=== PATIENT | female | born 1950 | race Caucasian/White ===

== ENCOUNTER 2025-04-23 09:07 | Emergency (ER) | payer MEDICARE, MEDICAID, SELFPAY ==
[2025-04-23] VITALS (41 sets, daily range): BP systolic 102–145; BP diastolic 75–101; PULSE 63–84; RESP 16; TEMP 36.6; O2SAT 54–98; BMI 41.0
--- NOTE | 2025-04-23 09:09 | ECG_ITS ---
The [facility] Test Date: 2025-04-23 Pat Name: Veronica Bansal Department: Room: - Gender: Female [employer] Operator: : 1950 Requested By: Order Number: [id number] Reading MD: BORIS JOHN M.D. Measurements Intervals [place] Rate: 81 P: 42 OK: 150 QRS: -41 QRSD: 90 T: -79 QT: 404 QTc: 442 Interpretive Statements 1100 Sinus rhythm [address] depression 4364 Twave abnormality, possible anterolateral ischemia 4664 Twave abnormality, possible inferior ischemia 7200 Abnormal left axis deviation 8003 Consistent with pulmonary disease 9150 abnormal ECG Compared to ECG 06/01/2021 03:59:41 ST (T wave) deviation now present Possible ischemia now present Left-axis deviation now present Electronically Signed On 04-23-2025 19:35:40 EST by BORIS JOHN M.D.
--- NOTE | 2025-04-23 09:09 | XR_ITS ---
The [address] [address] Patient Name: CHEMO ATKINSON MRN: [id number] date: 1950 Sex: F Assigned Patient Location: ER Current Patient Location: ED.MAIN Accession/Order Number: [id number] Exam Date: 04/23/2025 09:10 Report Date: 04/23/2025 09:31 At the request of: GABRIELLE MAXWELL MD Procedure: XR chest 1V PORTABLE AP ERECT CHEST 0910 hours CLINICAL HISTORY: Shortness of breath COMPARISON: 06/01/2021 Evaluation is slightly limited by large body habitus. There is elevation of the left hemidiaphragm with underlying air-filled viscus. There is adjacent basilar atelectasis and/or scarring. There is hazy density on the right, greatest at the base. The costophrenic angle is however seen. There is no pneumothorax. The heart may be slightly prominent. The bony structures are osteopenic. XR/XR chest 1V IMPRESSION: POSSIBLE MILD CARDIOMEGALY. BILATERAL PARENCHYMAL CHANGES, DESCRIBED. Impression dictated by: Maggie Cobian M.D. 04/23/2025 9:31 AM Dictation Location: [place] [address] Electronically authenticated by: [id number] Y Date: 04/23/2025 09:31
--- NOTE | 2025-04-23 09:24 | ED.GENADUL1 ---
HPI HPI - General Adult General Chief complaint: Shortness of Breath/Dyspnea Stated complaint: SOB Time Seen by Provider: 04/23/25 09:09 Source: medical record and other Source information: ems Mode of arrival: ambulance History of Present Illness HPI narrative: 74-year-old female presented for shortness of breath. She comes in from [facility] by paramedics. half-way reported an O2 sat in the mid 40s on room air. She was placed on nasal cannula and then CPAP at the paramedics. They did not have a low sat reading for them and reported sats in the upper 80s with these modalities. She is unable to provide any good history, she has a history of schizophrenia. No further history is obtainable. Related Data Home Medications ?Medication ?Instructions ?Recorded ?Confirmed alendronate 70 mg tablet 70 mg PO .TUES 04/23/25 04/23/25 amlodipine 2.5 mg tablet 2.5 mg PO .QD 04/23/25 04/23/25 atorvastatin 20 mg tablet 20 mg PO .QHS 04/23/25 04/23/25 docusate sodium 100 mg capsule 100 mg PO TID PRN constipation 04/23/25 04/23/25 (Colace) ergocalciferol (vitamin D2) 1,250 50,000 unit PO .THUR 04/23/25 04/23/25 mcg (50,000 unit) capsule ferrous sulfate 325 mg (65 mg 325 mg PO DAILY 04/23/25 04/23/25 iron) tablet furosemide 20 mg tablet 20 mg PO .QD 04/23/25 04/23/25 levothyroxine 50 mcg tablet 50 mcg PO .ACB 04/23/25 04/23/25 lorazepam 0.5 mg tablet 0.5 mg PO .QHS 04/23/25 04/23/25 lorazepam 1 mg tablet 1 mg PO .QD 04/23/25 04/23/25 memantine 10 mg tablet 10 mg PO BID 04/23/25 04/23/25 olanzapine 10 mg tablet (Zyprexa) 10 mg PO .QHS 04/23/25 04/23/25 omeprazole 20 mg capsule,delayed 20 mg PO DAILY 04/23/25 04/23/25 release oxcarbazepine 150 mg tablet 150 mg PO BID 04/23/25 04/23/25 rivastigmine tartrate 1.5 mg 1.5 mg PO BID 04/23/25 04/23/25 capsule sertraline 25 mg tablet 25 mg PO .QD 04/23/25 04/23/25 Allergies Allergy/AdvReac Type Severity Reaction Status Date / Time haloperidol (From Haldol) Allergy Unknown Unknown Verified 04/23/25 09:18 Review of Systems ROS Narrative Unobtainable, psychiatric disorder PFSH [facility] Medical History (Updated 04/23/25 @ 13:51 by Aaron Miller MD) Other specified behavioral problem Vascular dementia Anxiety ?F41.9 - Anxiety disorder, unspecified (ICD-10) Schizo affective schizophrenia ?F25.9 - Schizoaffective disorder, unspecified (ICD-10) Vitamin D deficiency ?E55.9 - Vitamin D deficiency, unspecified (ICD-10) Prediabetes ?R73.03 - Prediabetes (ICD-10) Morbid obesity ?E66.01 - Morbid (severe) obesity due to excess calories (ICD-10) Anemia ?D64.9 - Anemia, unspecified (ICD-10) Hyponatremia ?E87.1 - Hypo-osmolality and hyponatremia (ICD-10) Osteoporosis ?M81.0 - Age-related osteoporosis without current pathological fracture (ICD-10) IBS (irritable bowel syndrome) ?K58.9 - Irritable bowel syndrome, unspecified (ICD-10) GERD (gastroesophageal reflux disease) ?K21.9 - Gastro-esophageal reflux disease without esophagitis (ICD-10) Insomnia ?G47.00 - Insomnia, unspecified (ICD-10) Hyperlipidemia ?E78.5 - Hyperlipidemia, unspecified (ICD-10) Hypothyroidism ?E03.9 - Hypothyroidism, unspecified (ICD-10) Bipolar II disorder ?F31.81 - Bipolar II disorder (ICD-10) 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 CPAP is in place upon arrival Skin:Warm, dry, no pallor noted.There is no rash noted. Head:Normocephalic, atraumatic Eye: Normal conjunctiva, no drainage Ears, Nose, Mouth, and Throat: oral mucosa is moist. Nares patent. Cardiovascular:Regular Rate and Rhythm Respiratory:Patient is in no distress, she does not take in deep breaths. Breath sounds seem to be equal bilaterally. Back:non-tender GI: Soft and nontender Musculoskeletal: The patient has no evidence of calf tenderness, symmetrical pulses noted bilaterally Neurological: Awake and alert. Speaking in full sentences. Psychiatric: Moderately cooperative. Constitutional Vital Signs, click to edit/add: Last Vital Signs Temp 97.9 F 04/23/25 09:09 Pulse 76 04/23/25 09:25 Resp 20 04/23/25 09:09 BP 103/76 04/23/25 09:09 Pulse Ox 94 L 04/23/25 12:29 O2 Del Method Nasal Cannula 04/23/25 12:29 O2 Flow Rate 6 04/23/25 12:29 FiO2 50 04/23/25 09:25 Course Vital Signs Vital signs: Vital Signs Temperature 97.9 F 04/23/25 09:09 Pulse Rate 78 04/23/25 09:09 Respiratory Rate 20 04/23/25 09:09 Blood Pressure 103/76 04/23/25 09:09 Pulse Oximetry 91 L 04/23/25 09:09 Oxygen Delivery Method BIPAP 04/23/25 09:09 Temperature 97.9 F 04/23/25 09:09 Pulse Rate 76 04/23/25 09:25 Respiratory Rate 20 04/23/25 09:09 Blood Pressure 103/76 04/23/25 09:09 Pulse Oximetry 94 L 04/23/25 12:29 Oxygen Delivery Method Nasal Cannula 04/23/25 12:29 Oxygen Delivery Flow Rate 6 04/23/25 12:29 Fraction of Inspired Oxygen 50 04/23/25 09:25 Medical Decision Making MDM Narrative Medical decision making narrative: The patient presented with dyspnea. CT scan shows no evidence of pulmonary embolism and suggests a pneumonia but is also showing possible lung mass. Initial troponin was minimally elevated at 56 and the repeat was 75 and the third troponin was 70. She was given aspirin and started on heparin. She has an abnormal EKG with flipped T waves laterally and ST segment depression. The second EKG, performed at 1:44 PM shows similar findings, perhaps less pronounced. She does not seem to have had chest pain at any point. She was initially maintained on BiPAP but we were able to switch her over to 6 L nasal cannula and she is maintaining O2 sat of approximately 93%. No fever and blood pressure remains appropriate. Blood cultures were obtained and she was given IV Rocephin and Zithromax. Case discussed with Dr. John who request transfer to [facility] and this is being accomplished. I have spoken to Dr. Martínez who accepts the patient. Differential Diagnosis Differential Diagnosis: Pneumonia, heart failure, pleural effusion, NE, COVID, influenza Lab Data Lab results reviewed: Yes I reviewed the patient's lab results Labs: Lab Results 04/23/25 04/23/25 04/23/25 Range/Units 09:10 09:44 10:24 WBC 9.1 (4.0-11.0) 10^3/uL RBC 4.31 (4.20-5.40) 10^6/uL Hgb 13.9 (12.0-16.0) g/dL Hct 45.0 (36.0-48.0) % MCV 104.4 H (81.0-99.0) fL MCH 32.3 (26.7-34.0) pg MCHC 30.9 (29.9-35.2) g/dL RDW 15.7 H (11.0-15.0) % Plt Count 164 (150-450) 10^3/uL MPV 10.5 (9.5-13.5) fL Seg Neuts % (Manual) 82.0 H (43.0-75.0) Band Neutrophils % 1.0 (0-5) % Lymphocytes % (Manual) 2.0 L (20.5-60.0) % Monocytes % (Manual) 11.0 (1.7-12.0) % Eosinophils % (Manual) 3.0 (0.9-7.0) % Basophils % (Manual) 2.0 (0.2-2.0) % Neutrophils # (Manual) 7.46 H (1.4-6.5) 10^3/uL Band Neutrophils # 0.1 (0.0-0.3) 10^3/uL Lymphocytes # (Manual) 0.18 L (1.20-3.80) 10^3/uL Monocytes # (Manual) 1.00 H (0.30-0.80) 10^3/uL Eosinophils # (Manual) 0.27 (0.00-0.70) 10^3/uL Basophils # (Manual) 0.18 H (0.00-0.10) 10^3/uL Plt Morphology Comment Normal RBC Morphology Abnormal Polychromasia 1+ Poikilocytosis 1+ Anisocytosis 1+ Macrocytosis 1+ Ovalocytes 1+ Stomatocytes 1+ PT (9.0-11.6) sec INR D-Dimer 2.16 H* (<=0.59) mg/L FEU Sodium 144 (136-145) mmol/L Potassium 3.8 (3.5-5.1) mmol/L Chloride 103 (98-107) mmol/L Carbon Dioxide 34.6 H (21.0-32.0) mmol/L Anion Gap 10.2 BUN 29.0 H (7.0-18.0) mg/dL Creatinine 1.09 H (0.55-1.02) mg/dL Est GFR ( Amer) 60 (>=60 mL/min/1.73m^2) Est GFR (Non-Af Amer) 49 L (>=60 mL/min/1.73m^2) BUN/Creatinine Ratio 26.6 Glucose 159 H (74-106) mg/dL Lactate 3.1 H* (0.4-2.0) mmol/L Calcium 9.2 (8.5-10.1) mg/dL Troponin I High Sens 56.4 H* (4.0-51.3) pg/mL NT-Pro-B Natriuret Pep 5975.0 H* (<=900.0) pg/mL Influenza Type A Ag Negative Influenza Type B Ag Negative SARS-CoV-2 Ag (CV2AG) Negative (NEGATIVE) 04/23/25 04/23/25 04/23/25 Range/Units 10:52 12:50 14:00 WBC (4.0-11.0) 10^3/uL RBC (4.20-5.40) 10^6/uL Hgb (12.0-16.0) g/dL Hct (36.0-48.0) % MCV (81.0-99.0) fL MCH (26.7-34.0) pg MCHC (29.9-35.2) g/dL RDW (11.0-15.0) % Plt Count (150-450) 10^3/uL MPV (9.5-13.5) fL Seg Neuts % (Manual) (43.0-75.0) Band Neutrophils % (0-5) % Lymphocytes % (Manual) (20.5-60.0) % Monocytes % (Manual) (1.7-12.0) % Eosinophils % (Manual) (0.9-7.0) % Basophils % (Manual) (0.2-2.0) % Neutrophils # (Manual) (1.4-6.5) 10^3/uL Band Neutrophils # (0.0-0.3) 10^3/uL Lymphocytes # (Manual) (1.20-3.80) 10^3/uL Monocytes # (Manual) (0.30-0.80) 10^3/uL Eosinophils # (Manual) (0.00-0.70) 10^3/uL Basophils # (Manual) (0.00-0.10) 10^3/uL Plt Morphology Comment RBC Morphology Polychromasia Poikilocytosis Anisocytosis Macrocytosis Ovalocytes Stomatocytes PT 11.1 (9.0-11.6) sec INR 1.05 D-Dimer (<=0.59) mg/L FEU Sodium (136-145) mmol/L Potassium (3.5-5.1) mmol/L Chloride (98-107) mmol/L Carbon Dioxide (21.0-32.0) mmol/L Anion Gap BUN (7.0-18.0) mg/dL Creatinine (0.55-1.02) mg/dL Est GFR ( Amer) (>=60 mL/min/1.73m^2) Est GFR (Non-Af Amer) (>=60 mL/min/1.73m^2) BUN/Creatinine Ratio Glucose (74-106) mg/dL Lactate 2.2 H* (0.4-2.0) mmol/L Calcium (8.5-10.1) mg/dL Troponin I High Sens 74.7 H* 70.6 H* (4.0-51.3) pg/mL NT-Pro-B Natriuret Pep (<=900.0) pg/mL Influenza Type A Ag Influenza Type B Ag SARS-CoV-2 Ag (CV2AG) (NEGATIVE) Imaging Data Chest x-ray: Radiologist's impression: ITS Impressions Chest X-Ray 04/23/25 09:09 IMPRESSION: POSSIBLE MILD CARDIOMEGALY. BILATERAL PARENCHYMAL CHANGES, DESCRIBED. Impression dictated by: Maggie Cobian M.D. 04/23/2025 9:31 AM Dictation Location: [place] [address] Electronically authenticated by: [id number] Y Date: 04/23/2025 09:31 Chest CTA 04/23/25 10:51 IMPRESSION: Soft tissue prominence is noted in a masslike appearance along the mediastinum and tamika greatest in the left hilum. This is ill-defined. This contributes to irregular narrowing of the main pulmonary arteries and segmental branches without evidence of pulmonary embolism. There is also mild narrowing of the mainstem bronchi and segmental branches in the hilar, left greater the right. There is elevation left hemidiaphragm suggesting diaphragmatic paralysis. Dependent opacity is noted in the left lung base which may be secondary to an infectious process. There is scarring near the right lung base. Impression dictated by: Nnamdi Mccall M.D. 04/23/2025 1:02 PM Dictation Location: [place] [address] Electronically authenticated by: [id number] Y Date: 04/23/2025 13:02 ECG Data Attestation: I personally reviewed and interpreted this ECG as follows: (EKG my interpretation shows sinus rhythm with ST depression inferiorly and laterally. No previous EKG is available for comparison. Repeat EKG at 1:44 PM shows similar findings, less pronounced.) Critical Care Time Critical Care Time Critical Care Time: Yes Total Critical Care Time: 40 Attestation: Due to the high probability of sudden and clinically significant deterioration in the patient's condition he/she required the highest level of my preparedness to intervene urgently I provided critical care time including documentation time, medication orders and management, reevaluation, vital sign assessment, ordering and reviewing of lab tests, ordering and reviewing of x-ray studies, and admission orders. Aggregate critical care time is 40 minutes including only time during which I was engaged in work directly related to his/her care and did not include time spent treating other patients simultaneously. Discharge Plan Discharge Chief Complaint: Shortness of Breath/Dyspnea Clinical Impression: Dyspnea, Pneumonia, Elevated troponin, Abnormal EKG Patient Disposition: [facility] Time of Disposition Decision: 13:51 Discharge Location: [facility] Condition: Fair Mode of Transportation: EMS
[2025-04-23 10:10] LABS: SARS-CoV-2 Ag NEGATIVE (NEGATIVE)
[2025-04-23 10:18] LABS: Anion Gap 10.2; Blood Urea Nitrogen 29.0 mg/dL (7.0-18.0); Calcium 9.2 mg/dL (8.5-10.1); Carbon Dioxide 34.6 mmol/L (21.0-32.0); Chloride 103 mmol/L (98-107); Estimated GFR (African America 60 (>=60 mL/min/1.73m^2); Estimated GFR (Non-African Ame 49 (>=60 mL/min/1.73m^2); Glucose 159 mg/dL (74-106); Potassium 3.8 mmol/L (3.5-5.1); Sodium 144 mmol/L (136-145)
[2025-04-23 10:21] LABS: Lactate/Lactic Acid 3.1 mmol/L (0.4-2.0)
[2025-04-23 10:35] LABS: Hematocrit 45.0 % (36.0-48.0); Hemoglobin 13.9 g/dL (12.0-16.0); Mean Corpuscular HGB Conc 30.9 g/dL (29.9-35.2); Mean Corpuscular Hemoglobin 32.3 pg (26.7-34.0); Mean Corpuscular Volume 104.4 fL (81.0-99.0); Platelet Count 164 10^3/uL (150-450); Red Blood Count 4.31 10^6/uL (4.20-5.40); White Blood Count 9.1 10^3/uL (4.0-11.0)
[2025-04-23] MEDS: AZITHROMYCIN 500 MG in 0.9 % SODIUM CHLORIDE 250 ML 250 MG IV (10:42)
--- NOTE | 2025-04-23 10:51 | CT_ITS ---
[address] [address] Patient Name: CHEMO ATKINSON MRN: [id number] date: 1950 Sex: F Assigned Patient Location: ER Current Patient Location: [facility] Accession/Order Number: [id number] Exam Date: 04/23/2025 11:50 Report Date: 04/23/2025 13:02 At the request of: GABRIELLE MAXWELL MD Procedure: CT angio chest CT angio chest 04/23/2025 12:02 PM SIGN AND SYMPTOMS: ^Short of breath, elevated D-dimer CONTRAST: 100 mL of intravenous 350 TECHNIQUE: Multidetector CT axial slices of the chest were obtained with IV contrast. Multiplanar reformats were performed and viewed on a separate workstation and reviewed to further define anatomy and possible pathology. CT was performed with one or more of the following dose reduction techniques: Automated exposure control, adjustment of the mA and/or kV according to patient size, or use of iterative reconstruction technique. COMPARISON: None. FINDINGS: Lower neck: Thyroid gland within normal limits, no supraclavicle adenopathy. Vessels: Atherosclerotic changes are noted in the thoracic aorta. There is irregular narrowing of the main pulmonary arteries and segmental branches secondary to soft tissue prominence in the mediastinum and valencia Mediastinum and Valencia: Soft tissue prominence is noted in a masslike appearance along the mediastinum and valencia greatest in the left hilum. This is ill-defined. Heart: There is mild cardiomegaly.. No pericardial effusion. Airways: There is narrowing of the mainstem bronchi and segmental branches at the hilum, left greater than right. Lungs: There is elevation left hemidiaphragm suggesting diaphragmatic paralysis. Dependent opacity is noted in the left lung base which may be secondary to an infectious process. There is scarring near the right lung base. Pleura: Within normal limits. Chest Wall: Within normal limits. Upper Abdomen: Within normal limits. Bones: Degenerative changes are noted in the lower cervical spine, thoracic spine, and shoulders. CT/CT angio chest IMPRESSION: Soft tissue prominence is noted in a masslike appearance along the mediastinum and valencia greatest in the left hilum. This is ill-defined. This contributes to irregular narrowing of the main pulmonary arteries and segmental branches without evidence of pulmonary embolism. There is also mild narrowing of the mainstem bronchi and segmental branches in the hilar, left greater the right. There is elevation left hemidiaphragm suggesting diaphragmatic paralysis. Dependent opacity is noted in the left lung base which may be secondary to an infectious process. There is scarring near the right lung base. Impression dictated by: Nnamdi Mccall M.D. 04/23/2025 1:02 PM Dictation Location: [place] [address] Electronically authenticated by: [id number] Y Date: 04/23/2025 13:02
[2025-04-23 11:11] LABS: Band Neutrophils Absolute 0.1 10^3/uL (0.0-0.3); Basophils Abs Manual 0.18 10^3/uL (0.00-0.10); Basophils Percent Manual 2.0 % (0.2-2.0); Eosinophils Absolute Manual 0.27 10^3/uL (0.00-0.70); Eosinophils Percent Manual 3.0 % (0.9-7.0); Lymphocytes Absolute Manual 0.18 10^3/uL (1.20-3.80); Lymphocytes Percent Manual 2.0 % (20.5-60.0); Monocytes Absolute Manual 1.00 10^3/uL (0.30-0.80); Monocytes Percent Manual 11.0 % (1.7-12.0); Segmented Neut Absolute Manual 7.46 10^3/uL (1.4-6.5); Segmented Neutrophils % Manual 82.0 (43.0-75.0)
[2025-04-23 11:12] LABS: Anisocytosis 1+; Macrocytosis 1+; Ovalocytes 1+; Poikilocytosis 1+; Polychromasia 1+; RBC Morphology ABNORMAL; Stomatocytes 1+
--- NOTE | 2025-04-23 12:13 | PC.NURSE ---
this RN assessed some redness around IV during Azithromycin admin -- IV still remains usable, no signs of infiltration. Per Dr Miller, does not want it stopped, just slowed down.
[2025-04-23 13:21] LABS: Lactate/Lactic Acid 2.2 mmol/L (0.4-2.0)
--- NOTE | 2025-04-23 13:42 | PC.NURSE ---
Tita Rock called for an update at this time. informed her of pt's transfer
--- NOTE | 2025-04-23 13:45 | ECG_ITS ---
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 Measurements Intervals [place] Rate: 79 P: 54 NV: 158 QRS: 33 QRSD: 86 T: -75 QT: 408 QTc: 442 Interpretive Statements 1100 Sinus rhythm [address] depression 4364 Twave abnormality, possible anterolateral ischemia 4664 Twave abnormality, possible inferior ischemia 9150 abnormal ECG Compared to ECG 04/23/2025 09:16:54 Left-axis deviation no longer present ST (T wave) deviation still present Possible ischemia still present Electronically Signed On 04-23-2025 19:50:37 EST by BORIS JOHN M.D.
[2025-04-23] MEDS: HEPARIN SODIUM,PORCINE/D5W 25,000 UNIT/500 ML IV.SOLN 16 UNIT IV (14:20)
[2025-04-23] MEDS: HEPARIN SODIUM (PORCINE) 5,000 UNIT/ML VIAL 2700 UNIT IV (14:21)
[2025-04-23] MEDS: ASPIRIN 81 MG TAB.CHEW 324 MG PO (14:21)
--- NOTE | 2025-04-23 14:52 | PC.NURSE ---
attempted to call sister/PORebeca Sheehan, no answer but left message
[2025-04-23 15:28] LABS: INR 1.08; Prothrombin Time 11.4 sec (9.0-11.6)
[2025-04-23 15:29] LABS: Partial Thromboplastin Time 44.7 sec (22.3-36.2)
--- NOTE | 2025-04-23 16:14 | PC.NURSE ---
pt's POA called back and updated her on transfer. pt now speaking with her (Hiwot
[2025-04-25 01:42] LABS: A. calcoaceticus-baumannii Cpx NOT DETECTED (NOT DETECTE); Bacteroides fragilis NOT DETECTED (NOT DETECTE); Candida auris NOT DETECTED (NOT DETECTE); Candida glabrata NOT DETECTED (NOT DETECTE); Enterobacterales NOT DETECTED (NOT DETECTE); Enterococcus faecalis NOT DETECTED (NOT DETECTE); Enterococcus faecium NOT DETECTED (NOT DETECTE); Klebsiella aerogenes NOT DETECTED (NOT DETECTE); Klebsiella pneumoniae group NOT DETECTED (NOT DETECTE); Proteus spp. NOT DETECTED (NOT DETECTE); Salmonella spp. NOT DETECTED (NOT DETECTE); Serratia marcescens NOT DETECTED (NOT DETECTE); Source BLOOD; Staphylococcus epidermidis NOT DETECTED (NOT DETECTE); Staphylococcus lugdunensis NOT DETECTED (NOT DETECTE); Stenotrophomonas maltophilia NOT DETECTED (NOT DETECTE); Streptococcus pyogenes NOT DETECTED (NOT DETECTE); Streptococcus spp. NOT DETECTED (NOT DETECTE)
[2025-04-25 02:52] LABS: Staphylococcus spp. DETECTED (NOT DETECTE)
--- NOTE | 2025-04-25 03:06 | PC.NURSE ---
Inna in lab called with a preliminary positive blood culture result for this patient. The result was positive for staphylococcus species with no further information or sensitivity at this time. The patient was transferred to [facility] when she was here on 04/23/25 and the cultures will be sent there for final analysis.
== END 2025-04-23 16:35 | disposition short-term general hospital (02) ==
PROVIDERS: Emergency Provider Emergency Medicine; PCP Family Medicine
DX: J18.9 Pneumonia, unspecified organism (principal); R94.31 Abnormal electrocardiogram [ECG] [EKG]; R79.89 Other specified abnormal findings of blood chemistry; R06.00 Dyspnea, unspecified; R06.02 Shortness of breath; F20.9 Schizophrenia, unspecified
CPT/HCPCS: 36415; 71045; 71275; 80048; 83605; 83880; 84484; 85007; 85027; 85378; 85610; 85730; 87040; 87150; 87804; 87811; 93005; 94660; 96365; 96367; 96375; 99285; J0456; J0696; J1644; Q9967